=== PATIENT | male | born 1985 | race Hispanic/Latino ===

== ENCOUNTER 2018-02-20 07:48 | Emergency (ER) | payer OTHER ==
[2018-02-20 07:55] VITALS: BP 109/68; PULSE 88; RESP 18; TEMP 98.4; O2SAT 99
[2018-02-20] MEDS ORDERED: Sodium Chloride 0.9% 1,000 ML IV STA (08:04)
--- NOTE | 2018-02-20 08:11 | ED PDOC ---
HPI: Abdomen Time Seen by Provider: 02/20/18 07:49 Chief Complaint (Nursing): Abdominal Pain Chief Complaint (Provider): Abdominal Pain History Per: Patient History/Exam Limitations: no limitations Onset/Duration Of Symptoms: Days (x2) Current Symptoms Are (Timing): Still Present Location Of Pain/Discomfort: LUQ, LLQ Quality Of Discomfort: "Pain" Associated Symptoms: Urinary Symptoms. denies: Nausea, Vomiting, Diarrhea Additional History Per: Patient Additional Complaint(s): 32 year old male with no significant past medical history presents to the ED complaining of lower abdominal pain associated perinea pain onset 2 days. Patient states he rode a roller coaster on Tuesday after which symptoms started. He states he has some discomfort while urinating but denies hematuria, abdominal trauma, nausea, vomiting, diarrhea, other injuries or any other medical complaints. PMD: none provided Past Medical History Reviewed: Historical Data Vital Signs: Last Vital Signs Temp 98.4 F 02/20/18 07:54 Pulse 88 02/20/18 07:54 Resp 18 02/20/18 07:54 BP 109/68 02/20/18 07:54 Pulse Ox 99 02/20/18 09:44 - Medical History PMH: No Chronic Diseases - Surgical History Surgical History: No Surg Hx - Family History Family History: States: Unknown Family Hx - Home Medications Home Medications: Ambulatory Orders Medication Instructions Recorded Ciprofloxacin HCl [Cipro] 500 mg PO BID #20 tab 02/20/18 Dicyclomine [Dicyclomine HCl] 10 mg PO Q8 #10 cap 02/20/18 Metronidazole [Flagyl] 500 mg PO TID #30 tablet 02/20/18 - Allergies Allergies/Adverse Reactions: Allergies Allergy/AdvReac Type Severity Reaction Status Date / Time No Known Allergies Allergy Verified 02/20/18 08:03 Review of Systems ROS Statement: Except As Marked, All Systems Reviewed And Found Negative Gastrointestinal: Positive for: Abdominal Pain (lower). Negative for: Nausea, Vomiting, Diarrhea Genitourinary Male: Positive for: Dysuria Physical Exam - Reviewed Nursing Documentation Reviewed: Yes Vital Signs Reviewed: Yes - Physical Exam Appears: Positive for: Non-toxic, No Acute Distress Head Exam: Positive for: ATRAUMATIC, NORMOCEPHALIC Skin: Positive for: Normal Color, Warm, Dry Eye Exam: Positive for: EOMI, Normal appearance, PERRL Neck: Positive for: Normal, Painless ROM, Supple Cardiovascular/Chest: Positive for: Regular Rate, Rhythm. Negative for: Murmur Respiratory: Positive for: Normal Breath Sounds. Negative for: Respiratory Distress Gastrointestinal/Abdominal: Positive for: Soft, Tenderness (right lower quadrant ). Negative for: Guarding, Rebound Male Genital Exam: Positive for: other (no penile deformity, no testicular mass) . Negative for: lesions (penile), testicular tenderness (R), testicular tenderness (L) Back: Negative for: L CVA Tenderness, R CVA Tenderness Extremity: Positive for: Normal ROM (upper and lower). Negative for: Deformity , Swelling Neurologic/Psych: Positive for: Alert, Oriented (x3). Negative for: Motor/ Sensory Deficits - Laboratory Results Result Diagrams: 02/20/18 08:20 02/20/18 08:20 - ECG O2 Sat by Pulse Oximetry: 99 (RA) Pulse Ox Interpretation: Normal Medical Decision Making Medical Decision Making: Time: 8:04 Initial Plan: --CT abd and pelvis --CMP --CBC with differentials --NS --Urine culture --Urinalysis Time: 9:35 CT abd and pelvis: FINDINGS: LOWER THORAX: Unremarkable. LIVER: Unremarkable. No gross lesion or ductal dilatation. GALLBLADDER AND BILE DUCTS: Unremarkable. PANCREAS: Unremarkable. No mass. No ductal dilatation. SPLEEN: Unremarkable. No splenomegaly. ADRENALS: Unremarkable. KIDNEYS AND URETERS: Punctate calcifications in the medial aspect of the right upper pole kidney. No hydronephrosis. No hydroureter. Accessory right renal artery. BLADDER: Grossly unremarkable. REPRODUCTIVE: Grossly unremarkable. APPENDIX: No evidence of acute appendicitis. BOWEL: No bowel obstruction. Colonic wall thickening surrounding multiple diverticuli in the sigmoid colon consistent with diverticulitis. No focal adjacent fluid collection. No definite evidence of free air. Due to lack of oral contrast, evaluation of bowel is somewhat limited. PERITONEUM: No definite free fluid or air. LYMPH NODES: Mild reactive lymph nodes along the pelvic side slaughter. No bulky lymphadenopathy in the abdomen. VASCULATURE: No aortic aneurysm. Patent portal vein. BONES: No fracture or destructive lesion. OTHER FINDINGS: None. IMPRESSION: Acute diverticulitis involving the sigmoid colon. No focal fluid collection. Other areas of diverticular disease in the colon noted. Scribe Attestation: Documented by Cristin Belcher, acting as a scribe for Abdulaziz Zuluaga MD Provider Scribe Attestation: All medical record entries made by the Scribe were at my direction and personally dictated by me. I have reviewed the chart and agree that the record accurately reflects my personal performance of the history, physical exam, medical decision making, and the department course for this patient. I have also personally directed, reviewed, and agree with the discharge instructions and disposition. Disposition - Clinical Impression Clinical Impression: Diverticulitis - Patient ED Disposition Is Patient to be Admitted: No Counseled Patient/Family Regarding: Studies Performed, Diagnosis, Need For Followup, Rx Given - Disposition Disposition: Routine/Home Disposition Time: 09:54 Condition: FAIR Prescriptions: Ciprofloxacin HCl [Cipro] 500 mg PO BID #20 tab Dicyclomine [Dicyclomine HCl] 10 mg PO Q8 #10 cap Metronidazole [Flagyl] 500 mg PO TID #30 tablet Instructions: Diverticulitis Forms: [employer] ([place]yan)
[2018-02-20 08:36] LABS: BASO # 0.1 K/uL (0.0-0.2); BASO % 0.6 % (0.0-2.0); EOS # 0.2 K/uL (0.0-0.7); EOS % 1.6 % (0.0-4.0); HEMOGLOBIN 15.5 g/dL (12.0-18.0); LYMPH # 1.8 K/uL (1.0-4.3); LYMPH % 18.1 % (20.0-40.0); MEAN CELL VOLUME 89.9 fl (80.0-94.0); MEAN CORPUSCULAR HEMOGLOBIN 31.6 pg (27.0-31.0); MEAN CORPUSCULAR HGB CONC 35.1 g/dL (33.0-37.0); MEAN PLATELET VOLUME 8.3 fl (7.2-11.7); MONO # 0.9 K/uL (0.0-0.8); MONO % 9.6 % (0.0-10.0); NEUT # 6.9 K/uL (1.8-7.0); NEUT % 70.1 % (50.0-75.0); NRBC % 0.1 % (0.0-0.0); RBC 4.9 Mil/uL (4.40-5.90); RED CELL DISTRIBUTION WIDTH 13.3 % (11.5-14.5); WHITE BLOOD COUNT 9.8 K/uL (4.8-10.8)
[2018-02-20 08:41] LABS: ALB/GLOB RATIO 1.5 (1.0-2.1); ALBUMIN 4.6 g/dL (3.5-5.0); ALT/SGPT 29 U/L (21-72); AST/SGOT 23 U/L (17-59); BLOOD UREA NITROGEN 13 mg/dl (9-20); CALCIUM 9.5 mg/dL (8.4-10.2); GFR AFRICAN-AMERICAN > 60; GFR NON-AFRICAN AMERICAN > 60
[2018-02-20] MEDS ORDERED: Iohexol 300 100 ML IJ ONE (08:54)
--- NOTE | 2018-02-20 09:37 | CT ---
PROCEDURE: CT Abdomen and Pelvis with IV contrast. HISTORY: Abd pain COMPARISON: None. TECHNIQUE: Contiguous axial images of the abdomen and pelvis. Intravenous contrast was administered. No oral contrast given. Coronal and Sagittal reformats generated. Please note that due to lack of oral contrast, evaluation of bowel is limited. Intravenous contrast: 95 cc. Radiation dose: Total exam DLP = 331.41 mGy-cm. This CT exam was performed using one or more of the following dose reduction techniques: Automated exposure control, adjustment of the mA and/or kV according to patient size, and/or use of iterative reconstruction technique. FINDINGS: LOWER THORAX: Unremarkable. LIVER: Unremarkable. No gross lesion or ductal dilatation. GALLBLADDER AND BILE DUCTS: Unremarkable. PANCREAS: Unremarkable. No mass. No ductal dilatation. SPLEEN: Unremarkable. No splenomegaly. ADRENALS: Unremarkable. KIDNEYS AND URETERS: Punctate calcifications in the medial aspect of the right upper pole kidney. No hydronephrosis. No hydroureter. Accessory right renal artery. BLADDER: Grossly unremarkable. REPRODUCTIVE: Grossly unremarkable. APPENDIX: No evidence of acute appendicitis. BOWEL: No bowel obstruction. Colonic wall thickening surrounding multiple diverticuli in the sigmoid colon consistent with diverticulitis. No focal adjacent fluid collection. No definite evidence of free air. Due to lack of oral contrast, evaluation of bowel is somewhat limited. PERITONEUM: No definite free fluid or air. LYMPH NODES: Mild reactive lymph nodes along the pelvic side slaughter. No bulky lymphadenopathy in the abdomen. VASCULATURE: No aortic aneurysm. Patent portal vein. BONES: No fracture or destructive lesion. OTHER FINDINGS: None. IMPRESSION: Acute diverticulitis involving the sigmoid colon. No focal fluid collection. Other areas of diverticular disease in the colon noted.
[2018-02-20 09:38] LABS: URINE BILIRUBIN NEGATIVE (NEGATIVE); URINE BLOOD NEGATIVE (NEGATIVE); URINE CLARITY CLEAR (Clear); URINE COLOR YELLOW (YELLOW); URINE GLUCOSE (UA) NEG (Normal); URINE LEUKOCYTE ESTERASE NEG Leu/uL (Negative); URINE PROTEIN NEGATIVE (NEGATIVE); URINE UROBILINOGEN 0.2-1.0 mg/dL (0.2-1.0)
== END 2018-02-20 10:15 | disposition home or self-care (01) ==
LOC: H.ER 07:48
DX: K57.92 Diverticulitis of intestine, part unspecified, without perforation or abscess without bleeding (principal)
CPT/HCPCS: 74177; 80053; 81003; 85025; 87086; 99284; J7030; Q9967